=== PATIENT | male | born 1960 | race Caucasian/White ===

== ENCOUNTER → 2018-12-14 06:15 | Outpatient (CLI) | payer OTHER, SELFPAY ==
--- NOTE | 2018-12-14 06:20 | CA_ITS ---
APPROVED REPORT EXAM: Comprehensive 2D, Doppler, and color-flow Echocardiogram Tax Services Specialist: Geetha Renteria CRT Ht: 5 ft 11 in Wt: 238lbs BSA: 2.27 BP: 1323/75 mmHg Indications: cp, sob, htn, hld 2D Dimensions IVSd 1.70 cm LVEF (Visual) 55.50 % PWd 1.00 cm LVDd 4.20 cm LVDs 3.00 cm LVOT 2.00 cm (M/F) 1.5-2.5 M-Mode Dimensions LA Diam 3.80 cm (1.9-4.0) Ao Diam 3.70 cm (2.0-3.7) AV Cusp 2.30 cm (1.5-2.6) Aortic Valve AoV Peak Yony. 119.00 (50-130 cm/s) AO Peak GR. 6.00 mmHg Pulmonary Valve PA Accel Time 127.00 (>120 msec) Tricuspid Valve TR P. Velocity 278.00 cm/s RAP Estimate 10.00 mmHg RVSP 41.00 mmHg Left Ventricle Left atrium is mildly enlarged, left ventricle is normal size, mild concentric left ventricular hypertrophy, visually estimated ejection fraction 45%, there is moderate hypokinesis involving the basal septum and inferior basal wall. Diastolic parameters are inconclusive. Right Ventricle Right atrium and right ventricular normal size and contractility. Aortic Valve Aortic valve is minimally thickened and fibrosed. There is no aortic stenosis aortic insufficiency. Mitral Valve Mitral valve is grossly normal, there is mild mitral regurgitation. Tricuspid Valve Tricuspid valve is grossly normal, there is mild tricuspid regurgitation. Pulmonic Valve Pulmonic valve is poorly visualized. Great Vessels Aortic root is normal size. Pericardium No significant pericardial effusion noted. Conclusion 1. Mildly enlarged left atrium, normal left ventricular size, mild concentric left ventricular hypertrophy, visually estimated ejection fraction 45% with segmental wall motion abnormalities described above, diastolic parameters are inconclusive. 2. Mild mitral and tricuspid regurgitation 3. No significant pericardial effusion noted. Electronically signed by : Kieran Bernal, 07/23/2019 09:13:28
--- NOTE | 2018-12-14 06:25 | NM_ITS ---
APPROVED REPORT Exam: Nuclear Stress Test Indication: sob, chest pain Patient Location: Outpatient Stress Tech: Angela Jean [place] Tech:Tena Mccauley JAILENE RT(R)(N) Ht: 5 ft 11 in Wt: 243 lbs HR: 66 bpm BP: 144/72 mmHg BSA: 2.29 m2 BMI: 33.8 History: sob, chest pain Procedure: Patient exercised on Garcia protocol 8 minutes and sec, resting heart rate 66 bpm, resting blood pressure 144/72 mmHg, with exercise maximum heart rate achived was 170 bpm which is 105 % of the maximum predicted heart rate and blood pressure was 192/86 mmHg. Test was stopped due to short of breath. Patient denied any complaint of chest pain. Patient has Good exercise capacity, achieved 10.1 METs of workload on treadmill, the blood pressure response to exercise was Normal. Electrocardiogram Sinus rhythm normal EKG, with exercise there is less than 1.[address] segment depression noted from the baseline EKG. The EKG portion of the exercise Myoview is negative for ischemia. Cardiac Stress and Resting SPECT Images: Cardiac Stress and Resting SPECT images were obtained using technetium 99m Myoview 30.7 mCi stress and 10.29 mCi at rest. Gated SPECT with analysis of segmental wall motion and calculation of the ejection fraction also done. Cardiac stress and resting SPECT images show mild fixed defect in the inferior wall with normal contractility gated SPECT is likely secondary to soft tissue attenuation, no reversible ischemia seen. Computer derived ejection fraction is over 65% with no regional wall motion abnormality, right ventricle is normal size and contractility. Conclusion: 1. The EKG portion of the exercise Myoview is negative for ischemia, patient has good exercise capacity achieved 10.1 mets of workload on treadmill, the blood pressure response to exercise was adequate, there was no exercise-induced chest discomfort, test was stopped due to shortness of breath. 2. No scintigraphic evidence of reversible ischemia seen at this level of exercise, computer derived ejection fraction is over 65% with no regional wall motion abnormality, right ventricle is normal size and contractility. 3. Normal exercise Myoview study. Electronically signed by : Kieran Bernal, 12/14/2018 14:48:36
--- NOTE | 2018-12-14 06:25 | CA_ITS ---
APPROVED REPORT Exam: Exercise Treadmill Technologist: jeffy wagoner, Ht: 5 ft 11 in Wt: 243 lbs BSA: 2.29 m2 HR: 66 bpm BP: 144/72 mmHg Indications: CP, SOB Medical History Medications: Lisinopril,,,,, Lovastatin,,,,, Asa,,,,, Carvedilol,,,,, TAMULOSIN,,,,, ClonAZapam,,,,, Allergies: Sulfa, Trimethoprim Cardiac Risk Factors: HTN, Hyperlipidemia, Smoking, FHX of CAD Stress Test Details Test: Garcia HR Resting HR: 79 bpm Max Heart Rate (APMHR): 162 bpm Max HR Achieved: 170 bpm Target HR (85% APMHR): 137 bpm % of APMHR: 104 Recovery HR: 123 bpm BP Resting BP: 144/72 mmHg Max BP: 192/86 mmHg Recovery BP: 192.0/86.0 mmHg ECG Resting ECG: Sinus Rhythm Clinical Reason for Termination: SOB Exercise duration: 08:00 min Highest Stage Achieved: Exercise capacity: 10.1 METs Stress ECG Conclusion Garcia Protocol Completed. Exercised for 08:00min. METS: 10.1, Max BP 192/86. Max HR 170. Stopped due to SOB. Symptoms: No CP. SOB at peak exercise resolved during recovery. Arrhythmias/Ectopy: Occasionial PVC ST-T Changes: Less than 1.5mm ST Depression. Images to follow. Test Summary REST . . . . . . . Standing REST . . . . . . . Sitting REST 10:23 0.0 0.0 79 . 144/ 72 . . Stage 1 01:00 10.0 1.7 92 . . . . Stage 1 02:00 10.0 1.7 96 . . . . Stage 1 03:00 10.0 1.7 104 . 152/ 80 . . Stage 2 01:00 12.0 2.5 112 . . . . Stage 2 02:00 12.0 2.5 117 . . . . Stage 2 03:00 12.0 2.5 122 . 148/ 74 . . Stage 3 . . . . . . . Cardiolite injected Stage 3 01:00 14.0 3.4 138 . . . . Stage 3 02:00 14.0 3.4 155 . . . Stop exercise at 08:00 RECOVERY 01:00 0.0 0.0 136 . . . . RECOVERY 02:00 0.0 0.0 125 . . . . RECOVERY 03:00 0.0 0.0 124 . 192/ 86 . . RECOVERY 04:00 0.0 0.0 117 . 181/ 91 . . RECOVERY 05:00 0.0 0.0 117 . 165/ 91 . . RECOVERY 05:10 0.0 0.0 115 . 165/ 91 . . Electronically signed by : Kieran Bernal, 12/15/2018 06:43:41
--- NOTE | 2018-12-14 08:38 | HMH.ITSHM ---
Current Home Medications as stated by this patient Gordo Lopez or support representative. [] lisinopril carvedilol asa lovastatin tamulosin clonazepam
== END ==
PROVIDERS: PCP Family Medicine; Visit Provider Nurse Practitioner Family
DX: R00.0 Tachycardia, unspecified (principal); R07.9 Chest pain, unspecified; E78.49 Other hyperlipidemia; I10 Essential (primary) hypertension
CPT/HCPCS: 78452; 93017; 93306; A9502

== ENCOUNTER → 2019-12-24 13:25 | Outpatient (CLI) | payer OTHER, SELFPAY ==
--- NOTE | 2019-12-24 13:29 | CA_ITS ---
APPROVED REPORT EXAM: Comprehensive 2D, Doppler, and color-flow Echocardiogram Academic Associate: Geetha Renteria CRT Ht: 5 ft 11 in Wt: 224lbs BSA: 2.21 BP: 136/78 mmHg Indications: CAD, Hyperlipidemia, Cardiomyopathy, Hypertension/HDD, ex smoker, ef on 12/22 45%, ex smoker 2D Dimensions LVOT 1.98 cm (M/F) 1.5-2.5 M-Mode Dimensions RVDd 2.65 cm (0.9-2.6) LA Diam 4.00 cm (1.9-4.0) LVDd 4.77 cm (3.5-5.7) Ao Diam 4.05 cm (2.0-3.7) LVDs 3.29 cm (3.5-5.7) IVSd 1.13 cm (0.6-1.1) PWd 0.83 cm (0.6-1.1) EF (Teich) 58.70% FS 31.00% EDV (Teich) 106.00 mL ESV (Teich) 43.80 mL LV Diastology E Decel Time 150.00 (160-240 msec) E/A Ratio 0.81 MED E' 7.20 (< 7 cm/sec) E'/MED E' Ratio 7.12 (>14) LAT E' 11.90 (<10 cm/sec) E/LAT E' Ratio 4.31 (>14) Aortic Valve AO Peak GR. 7.00 mmHg Mitral Valve MV E Max Yony. 51.00 (40-130 cm/s) MV A Velocity 64.00 (40-130 cm/s) E/A Ratio 0.81 MV Decel. Time 150.00 (160-240 ms) MV PHT 44.00 ms Pulmonary Valve PV Peak Velocity 98.00 (50-150 cm/s) Tricuspid Valve TR P. Velocity 194.00 cm/s RAP Estimate 10.00 mmHg RVSP 25.10 mmHg Left Ventricle Left atrium is mildly enlarged, left ventricle is normal size, mild concentric left ventricular hypertrophy, visually estimated ejection fraction 45% with no obvious regional wall motion abnormality, endocardial surfaces are poorly visualized, grade 1 diastolic dysfunction seen without tissue Doppler evidence of raise left atrial pressure. Right Ventricle Right atrium and right ventricle are normal size and contractility. Aortic Valve Aortic valve is minimally thickened and fibrosed, there is no aortic stenosis or aortic insufficiency. Mitral Valve Mitral valve is grossly normal, there is mild mitral regurgitation. Tricuspid Valve Tricuspid valve is grossly normal, there is mild tricuspid regurgitation. Pulmonic Valve Pulmonic valve is poorly visualized. Great Vessels Aortic root is normal size. Pericardium No significant pericardial effusion noted. Conclusion 1. Mildly enlarged left atrium, normal left ventricular size, mild concentric left ventricular hypertrophy, visually estimated ejection fraction 45% with no obvious regional wall motion abnormality, grade 1 diastolic dysfunction seen without tissue Doppler evidence of raise left atrial pressure. 2. Mild mitral and tricuspid regurgitation. 3. No significant pericardial effusion noted. Electronically signed by : Kieran Bernal, 12/24/2019 19:13:09
== END ==
PROVIDERS: PCP Family Medicine; Visit Provider Internal Medicine
DX: I42.0 Dilated cardiomyopathy (principal)
CPT/HCPCS: 93306

== ENCOUNTER → 2022-03-21 14:23 | Outpatient (CLI) | payer SELFPAY ==
--- NOTE | 2022-03-21 14:24 | CA_ITS ---
APPROVED REPORT EXAM: Comprehensive 2D, Doppler, and color-flow Echocardiogram Lgsw: Geetha Renteria CRT Ht: 5 ft 1 in Wt: 233lbs BSA: 2.02 BP: 143/60 mmHg Indications: CM EF 45% 2020, HTN, HLD, OBESITY, 2D Dimensions LVOT 1.90 cm (M/F) 1.5-2.5 LA Volume 21.70 mL LA Volume Index 9.40 mL/m2 (M/F) 16-34 M-Mode Dimensions RVDd 2.88 cm (0.9-2.6) LA Diam 3.65 cm (1.9-4.0) LVDd 4.56 cm (3.5-5.7) Ao Diam 4.05 cm (2.0-3.7) LVDs 3.45 cm (3.5-5.7) IVSd 1.07 cm (0.6-1.1) PWd 0.93 cm (0.6-1.1) EF (Teich) 48.50% FS 24.30% EDV (Teich) 95.40 mL TAPSE 2.06 (<1.7) ESV (Teich) 49.10 mL LV Diastology E Decel Time 170.00 (160-240 msec) E/A Ratio 0.76 MED E' 6.90 (< 7 cm/sec) MED A' 12.10 cm/s E'/MED E' Ratio 8.00 (>14) LAT E' 10.80 (<10 cm/sec) LAT A' 15.60 cm/s E/LAT E' Ratio 5.11 (>14) Aortic Valve AO Peak GR. 4.30 mmHg Mitral Valve MV A Velocity 73.00 (40-130 cm/s) E/A Ratio 0.76 MV Decel. Time 170.00 (160-240 ms) Pulmonary Valve PV Peak Velocity 120.00 (50-150 cm/s) Tricuspid Valve TR P. Velocity 271.00 cm/s RAP Estimate 10.00 mmHg RVSP 39.30 mmHg Left Ventricle Technically difficult study because of the patient factors and poor acoustic windows. Endocardial surfaces are poorly visualized. Left atrium is mildly enlarged, left ventricle is normal size mild concentric left ventricular hypertrophy, estimated ejection fraction 55% with no obvious regional wall motion abnormality, grade 1 diastolic dysfunction seen without tissue Doppler evidence of reduced left atrial pressure. Right Ventricle Right atrium and right ventricle are mildly enlarged with normal contractility. Aortic Valve Aortic valve is minimally thickened and fibrosed there is no aortic stenosis aortic insufficiency. Mitral Valve Mitral valve grossly normal, there is trace mitral regurgitation. Tricuspid Valve Tricuspid valve grossly normal, there is trace tricuspid regurgitation, tricuspid regurgitation jet velocity is inadequate for calculation of the right ventricular systolic pressure. Pulmonic Valve Pulmonic valve is poorly visualized. Great Vessels Aortic root is normal size. Inferior vena cava is poorly visualized. Pericardium No significant pericardial effusion noted. Conclusion 1. Mildly enlarged left atrium, normal left ventricular size, mild concentric left ventricular hypertrophy, estimated ejection fraction 55% with no regional wall motion abnormality, grade 1 diastolic dysfunction seen without tissue Doppler evidence of raise left atrial pressure. 2. Mildly enlarged right ventricle with normal contractility. 3. Trace mitral and tricuspid regurgitation. 4. No significant pericardial effusion noted. 5. Inferior vena cava is poorly visualized. Electronically signed by : Kieran Bernal MD 03/22/2022 05:49:38
== END ==
PROVIDERS: PCP Family Medicine; Visit Provider Nurse Practitioner Family
DX: I42.0 Dilated cardiomyopathy (principal); I10 Essential (primary) hypertension; I49.3 Ventricular premature depolarization; E78.2 Mixed hyperlipidemia
CPT/HCPCS: 93306